=== PATIENT | female | born 1980 | race Caucasian/White ===

== ENCOUNTER 2017-11-29 16:02 | Emergency (ER) | payer BC ==
[~2017-11-29] VITALS: Ht 162.6 cm; Wt 68.4 kg
[2017-11-29 16:07] VITALS: TEMP 36.5; Ht 162.6 cm; Wt 68.4 kg
--- NOTE | 2017-11-29 17:24 | DIAGNOSTIC IMAGING REPORT ---
CHEST ONE VIEW PORTABLE CLINICAL HISTORY: Weakness COMPARISON STUDY: No previous studies for comparison. FINDINGS: The cardiac and mediastinal contours are normal. There is no evidence of focal pulmonary consolidation. There is no evidence of failure. No pleural effusions are visualized.[ IMPRESSION: No active disease in the chest. Electronically signed by: Maxim Alfaro M.D. 11/29/2017 5:23 PM Dictated Date/Time: 11/29/2017 5:22 PM
[2017-11-29] MEDS ORDERED: MULT-506 PO (17:26)
[2017-11-29] MEDS ORDERED: SPIR25TA PO (17:26)
[2017-11-29] MEDS ORDERED: LEVOTAB6 PO (17:26)
[2017-11-29] MEDS ORDERED: CETI10TA84 PO (17:26)
[2017-11-29] MEDS ORDERED: ASCO1CHW17 PO (17:26)
[2017-11-29] MEDS ORDERED: PROB1TAB16 PO (17:26)
[2017-11-29 17:39] VITALS: O2SAT 100
[2017-11-29 17:43] LABS: BASO % 0.3 %; BASO ABS # 0.02 K/uL (0-0.2); EOS % 1.6 %; EOS ABS # 0.12 K/uL (0-0.5); HEMATOCRIT 44.2 % (37-47); HEMOGLOBIN 15.6 g/dL (12.0-16.0); IG# 0.02 K/uL (0.00-0.02); LYMPH % 35.3 %; MEAN CELL VOLUME 89.1 fL (80-100); MEAN CORPUSCULAR HEMOGLOBIN 31.5 pg (25-34); MEAN CORPUSCULAR HGB CONC 35.3 g/dl (32-36); MEAN PLATELET VOLUME 10.2 fL (7.4-10.4); MONO % 5.6 %; MONO ABS # 0.41 K/uL (0.11-0.59); NEUT % 56.9 %; NEUT ABS # 4.19 K/uL (1.4-6.5); PLATELET COUNT 258 K/uL (130-400); RED CELL DISTRIBUTION WIDTH CV 12.2 % (11.5-14.5); RED CELL DISTRIBUTION WIDTH SD 39.3 fL (36.4-46.3); WHITE BLOOD COUNT 7.36 K/uL (4.8-10.8)
[2017-11-29] MEDS: SODIUM CHLORIDE 0.9% 1000ML 1,000 ML IV STA (17:44)
[2017-11-29 17:49] LABS: PTT PATIENT 26.7 SECONDS (21.0-31.0)
[2017-11-29 18:08] LABS: ALT/SGPT 39 U/L (12-78); BLOOD UREA NITROGEN 14 mg/dl (7-18); CALCIUM 9.1 mg/dl (8.5-10.1); CARBON DIOXIDE 26 mmol/L (21-32); GLUCOSE 89 mg/dl (70-99); POTASSIUM 3.5 mmol/L (3.5-5.1); SODIUM 137 mmol/L (136-145)
[2017-11-29 18:19] LABS: ALKALINE PHOSPHATASE 51 U/L (45-117); AST/SGOT 20 U/L (15-37); TOTAL PROTEIN 7.9 gm/dl (6.4-8.2)
--- NOTE | 2017-11-29 18:37 | DIAGNOSTIC IMAGING REPORT ---
CT HEAD WITHOUT CONTRAST (CT) CLINICAL HISTORY: Weakness COMPARISON STUDY: No previous studies for comparison. TECHNIQUE: Axial CT of the brain is performed from the vertex to the skull base. IV contrast was not administered for this examination. A dose lowering technique was utilized adhering to the principles of ALARA. CT DOSE: 537.48 mGy.cm FINDINGS: No intra or extra-axial mass lesions are visualized. There is no CT evidence of acute cortical infarction. There is no evidence of midline shift. There is no acute hemorrhage. No calvarial fractures are visualized. There is no evidence of pathologic ventricular dilatation. There is no evidence of acute sinusitis IMPRESSION: Normal noncontrast head CT. Electronically signed by: Maxim Alfaro M.D. 11/29/2017 6:36 PM Dictated Date/Time: 11/29/2017 6:35 PM
[2017-11-29 19:50] VITALS: BP 131/68; PULSE 73; O2SAT 98
--- NOTE | 2017-11-30 00:22 | EMERGENCY ROOM VISIT NOTE ---
History Report prepared by Fortino: Carolina Almonte Under the Supervision of: Dr. Giuliano Archuleta D.O. First contact with patient: 16:51 Chief Complaint: DIZZY Stated Complaint: DIZZY, SHAKEY, MUSCLES FEEL FUNNY, STOMACH CRAMPS Nursing Triage Summary: Patient states on Monday before lunch she felt dizzy and lightheaded. people at work opened a window and gave her some gatorade. Today again same thing. Recent new vitamin. Denies headache. History of Present Illness The patient is a 37 year old female who presents to the Emergency Room with complaints of intermittent dizziness starting 2 days ago. She was sent to the ED by her PCP. The patient suddenly felt lightheaded during lunch 2 days ago. She felt shaky and like she might pass out. She states that her arms and legs felt heavy. This dizziness worsens with movement of her head. She has had tingling in her right arm and right side at night. She denies any chest pain, SOB, ringing in the ears, or focal weakness. She has no history of hypertension. No vomiting or diarrhea. Source of History: patient Onset: 2 days ago Position: other (global) Quality: other (dizziness) Timing: intermittent Modifying Factors (Worsening): movement (of head) Associated Symptoms: No chest pain, No SOB, No weakness Review of Systems See HPI for pertinent positives & negatives. A total of 10 systems reviewed and were otherwise negative. Past Medical & Surgical Medical Problems: (1) Asthma Family History Cancer Heart disease Social History Smoking Status: Never Smoker Smokeless Tobacco Use: No Alcohol Use: other (rarely) Marital Status: Housing Status: lives with family Occupation Status: employed Current/Historical Medications Scheduled Ascorbic Acid (Vitamin C Adult Gummies 125 mg), 1 TAB PO DAILY Cetirizine (Zyrtec), 10 MG PO 1-2XDAILY Levonorgestrel-Ethinyl Estradi (Seasonique), 1 TAB PO DAILY Multivitamin (Multivitamin), 1 TAB PO DAILY Probiotic Product (Probiotic), 1 TAB PO DAILY Spironolactone (Aldactone), 1 TAB PO DAILY Allergies Coded Allergies: Sulfa Antibiotics (Unverified Allergy, Intermediate, HIVES, SOB, 11/29/17) Physical Exam Vital Signs Date Time Temp Pulse Resp B/P (MAP) Pulse Ox O2 Delivery O2 Flow Rate FiO2 11/29/17 19:50 73 18 131/68 98 11/29/17 17:45 75 18 122/86 100 Room Air 11/29/17 17:42 83 11/29/17 17:40 80 121/87 100 Room Air 81 117/87 83 122/86 11/29/17 17:39 100 Room Air 11/29/17 16:07 36.5 80 16 162/89 99 Room Air Physical Exam GENERAL: Sitting up in bed, alert, well appearing, well nourished, no distress, non-toxic EYE EXAM: normal conjunctiva. PERRL and EOM's intact. OROPHARYNX: no exudate, no erythema, lips, buccal mucosa, and tongue normal and mucous membranes are moist NECK: supple, no nuchal rigidity, no adenopathy, non-tender LUNGS: Clear to auscultation. Normal chest wall mechanics HEART: no murmurs, S1 normal and S2 normal ABDOMEN: abdomen soft, non-tender, normo-active bowel sounds, no masses, no rebound or guarding. BACK: Back is symmetrical on inspection and there is no deformity, no midline tenderness, no CVA tenderness. SKIN: no rashes and no bruising UPPER EXTREMITIES: upper extremities are grossly normal. LOWER EXTREMITIES: No pitting edema. NEURO EXAM: Normal sensorium, cranial nerves II-XII intact, normal speech, no weakness of arms, no weakness of legs. No drift. Finger to nose intact. Gross sensation intact. Medical Decision & Procedures ER Provider Diagnostic Interpretation: Xray results as stated below per my and the radiologist's interpretation. Radiology results as stated below per my review and the radiologist's interpretation: CHEST ONE VIEW PORTABLE CLINICAL HISTORY: Weakness COMPARISON STUDY: No previous studies for comparison. FINDINGS: The cardiac and mediastinal contours are normal. There is no evidence of focal pulmonary consolidation. There is no evidence of failure. No pleural effusions are visualized.[ IMPRESSION: No active disease in the chest. Electronically signed by: Maxim Alfaro M.D. 11/29/2017 5:23 PM Dictated Date/Time: 11/29/2017 5:[address] HEAD WITHOUT CONTRAST (CT) CLINICAL HISTORY: Weakness COMPARISON STUDY: No previous studies for comparison. TECHNIQUE: Axial CT of the brain is performed from the vertex to the skull base. IV contrast was not administered for this examination. A dose lowering technique was utilized adhering to the principles of ALARA. CT DOSE: 537.48 mGy.cm FINDINGS: No intra or extra-axial mass lesions are visualized. There is no CT evidence of acute cortical infarction. There is no evidence of midline shift. There is no acute hemorrhage. No calvarial fractures are visualized. There is no evidence of pathologic ventricular dilatation. There is no evidence of acute sinusitis IMPRESSION: Normal noncontrast head CT. Electronically signed by: Maxim Alfaro M.D. 11/29/2017 6:36 PM Dictated Date/Time: 11/29/2017 6:35 PM Laboratory Results 11/29/17 17:24 Red Blood Count 4.96, Mean Corpuscular Volume 89.1, Mean Corpuscular Hemoglobin 31.5, Mean Corpuscular Hemoglobin Concent 35.3, Mean Platelet Volume 10.2, Neutrophils (%) (Auto) 56.9, Lymphocytes (%) (Auto) 35.3, Monocytes (%) (Auto) 5.6, Eosinophils (%) (Auto) 1.6, Basophils (%) (Auto) 0.3, Neutrophils # (Auto) 4.19, Lymphocytes # (Auto) 2.60, Monocytes # (Auto) 0.41, Eosinophils # (Auto) 0.12, Basophils # (Auto) 0.02 11/29/17 17:24 Test 11/29/17 17:24 11/29/17 17:26 White Blood Count 7.36 K/uL (4.8-10.8) Red Blood Count 4.96 M/uL (4.2-5.4) Hemoglobin 15.6 g/dL (12.0-16.0) Hematocrit 44.2 % (37-47) Mean Corpuscular Volume 89.1 fL (80-100) Mean Corpuscular Hemoglobin 31.5 pg (25-34) Mean Corpuscular Hemoglobin Concent 35.3 g/dl (32-36) Platelet Count 258 K/uL (130-400) Mean Platelet Volume 10.2 fL (7.4-10.4) Neutrophils (%) (Auto) 56.9 % Lymphocytes (%) (Auto) 35.3 % Monocytes (%) (Auto) 5.6 % Eosinophils (%) (Auto) 1.6 % Basophils (%) (Auto) 0.3 % Neutrophils # (Auto) 4.19 K/uL (1.4-6.5) Lymphocytes # (Auto) 2.60 K/uL (1.2-3.4) Monocytes # (Auto) 0.41 K/uL (0.11-0.59) Eosinophils # (Auto) 0.12 K/uL (0-0.5) Basophils # (Auto) 0.02 K/uL (0-0.2) RDW Standard Deviation 39.3 fL (36.4-46.3) RDW Coefficient of Variation 12.2 % (11.5-14.5) Immature Granulocyte % (Auto) 0.3 % Immature Granulocyte # (Auto) 0.02 K/uL (0.00-0.02) Prothrombin Time 10.0 SECONDS (9.0-12.0) Prothromb Time International Ratio 1.0 (0.9-1.1) Activated Partial Thromboplast Time 26.7 SECONDS (21.0-31.0) Partial Thromboplastin Ratio 1.0 Urine Color YELLOW Urine Appearance CLEAR (CLEAR) Urine pH 8.0 (4.5-7.5) Urine Specific [place] 1.005 (1.000-1.030) Urine Protein NEG (NEG) Urine Glucose (UA) NEG (NEG) Urine Ketones NEG (NEG) Urine Occult Blood NEG (NEG) Urine Nitrite NEG (NEG) Urine Bilirubin NEG (NEG) Urine Urobilinogen NEG (NEG) Urine Leukocyte Esterase TRACE (NEG) Urine WBC (Auto) 1-5 /hpf (0-5) Urine RBC (Auto) 0-4 /hpf (0-4) Urine Hyaline Casts (Auto) 0 /lpf (0-5) Urine Epithelial Cells (Auto) 10-20 /lpf (0-5) Urine Bacteria (Auto) NEG (NEG) Anion Gap 8.0 mmol/L (3-11) Est Creatinine Clear Calc Drug Dose 80.5 ml/min Estimated GFR () 94.0 Estimated GFR (Non- 81.1 BUN/Creatinine Ratio 15.3 (10-20) Calcium Level 9.1 mg/dl (8.5-10.1) Total Bilirubin 0.4 mg/dl (0.2-1) Direct Bilirubin 0.1 mg/dl (0-0.2) Aspartate Amino Transf (AST/SGOT) 20 U/L (15-37) Alanine Aminotransferase (ALT/SGPT) 39 U/L (12-78) Alkaline Phosphatase 51 U/L (45-117) Troponin I < 0.015 ng/ml (0-0.045) Total Protein 7.9 gm/dl (6.4-8.2) Albumin 4.0 gm/dl (3.4-5.0) Thyroid Stimulating Hormone (TSH) 2.070 uIu/ml (0.300-4.500) Bedside Glucose 113 mg/dl (70-90) Laboratory results per my review. Medications Administered Medications (Trade) Dose Ordered Sig/Óscar Route Start Time Stop Time Status Last Admin Dose Admin Sodium Chloride 1,000 ml @ 999 mls/hr Q1H1M STAT IV 11/29/17 17:08 11/29/17 18:08 DC 11/29/17 17:44 999 MLS/HR ECG Per My Interpretation Indication: other (dizziness) Rate (beats per minute): 76 Rhythm: sinus rhythm Findings: other (normal axis, no PVC) ED Course ED COURSE: Vital signs were reviewed and showed hypertension. The patients medical record was reviewed The above diagnostic studies were performed and reviewed. ED treatments and interventions as stated above. 1702: The patient was evaluated in room C8. A complete history and physical examination was performed. 1708: NSS 1000 ml @ 999 mls/hr IV. 1919: Upon reevaluation, the patient is resting comfortably. I discussed my findings with the patient and she understands and agrees with the treatment plan. Based on the patients age, coexisting illnesses, exam and lab findings the decision to treat as an outpatient was made. The patient remained stable while under my care. The patient appeared well at the time of discharge. Medical Decision Differential diagnosis includes etiologies such as benign positional vertigo, dehydration, hypovolemia, anemia, tumor, infection, hypoglycemia, electrolyte abnormalities, cardiac sources, intracerebral event, toxicologic, neurologic, as well as others were entertained. Patient is a 29-year-old female who presents to ER for intermittent lightheadedness which started today with lunch. She had the same symptoms on Monday. She is completely neurologically intact. CBC all BMP, LFTs, bilirubin and troponin were negative. TSH was normal. UA was negative. No chest pain or shortness of breath to suggest PE. Chest x-ray was unremarkable. CT head was negative. EKG was nondiagnostic. Patient was given fluids. She did feel completely back to baseline. Her abdominal exam was completely benign. Uncertain of the true etiology of her symptoms. On Monday she did have some ringing in her ear associated with this. Today she did not. It is worsened with twisting turning of her head. I do favor the this is likely benign positional vertigo although I was not able to produce on exam as her symptoms have completely abated. Discussed with Pt concerning signs and symptoms to watch out for. Pt was instructed to follow up with their PCP and discussed with the patient their option to return to the ED at anytime for persistent or worsening symptoms. The appropriate anticipatory guidance and out-patient management, including indications for return to the emergency department, were explained at length to the patient and understood. Medication Reconcilliation Current Medication List: was personally reviewed by me Blood Pressure Screening Patient's blood pressure: Elevated blood pressure Blood pressure disposition: Elevated BP felt to be situational Impression Primary Impression: Dizziness Scribe Attestation The scribe's documentation has been prepared under my direction and personally reviewed by me in its entirety. I confirm that the note above accurately reflects all work, treatment, procedures, and medical decision making performed by me. Departure Information Dispostion Home / Self-Care Referrals Ronni Rivera M.D. (PCP) Forms HOME CARE DOCUMENTATION FORM, IMPORTANT VISIT INFORMATION Patient Instructions ED Dizziness O, My [facility] Additional Instructions Please follow up with your primary care doctor with in the next 24 hours. Any worsening of your symptoms, please return to the ED immediately. This includes any fevers greater than 100.4, worsening pain, chest pain, shortness breath, persistent nausea, vomiting, unable to eat or drink, or any other concerning signs or symptoms from your standpoint.
== END 2017-11-29 19:50 | disposition home or self-care (01) ==
LOC: C.EDB 16:04 → C.EDC 19:50
DX: R42 Dizziness and giddiness (principal); J45.909 Unspecified asthma, uncomplicated; Z82.49 Family history of ischemic heart disease and other diseases of the circulatory system

== ENCOUNTER 2020-04-17 06:02 | Observation (INO) ==
--- NOTE | 2020-03-31 11:00 | PAT Medication Instructions ---
Medication Instructions Date of Service March 31, 2020 Home Medications Medication Instructions Recorded ondansetron HCl 4 mg tablet 4 mg PO TID PRN 5 Days #20 tab 01/17/20 ascorbic acid (vitamin C) 125 mg PO DAILY spironolactone 50 mg PO QAM cholecalciferol (vitamin D3) 10 mcg (400 unit) capsule 10 mcg PO DAILY multivitamin 1 tab PO DAILY vitamin B complex 1 tab PO DAILY ondansetron HCl 4 mg tablet 4 mg PO TID PRN albuterol sulfate 90 mcg/actuation breath activated powder inhaler 1 puffs INH QID PRN azelastine 137 mcg (0.1 %) nasal spray aerosol 1 sprays INTNAS BID cetirizine 10 mg capsule 10 mg PO BID fluticasone propionate 50 mcg/actuation nasal spray,suspension 1 sprays INTNAS DAILY lactobacillus combination no.9 4 billion cell capsule 4,000 mmu cells PO DAILY omega-3 fatty acids 1,000 mg capsule 1,000 mg PO DAILY guaifenesin [Mucinex] 600 mg PO QAM STOP taking 2 weeks before surgery (or as soon as possible if surgery is within 2 weeks) omega-3 fatty acids 1,000 mg capsule 1,000 mg PO DAILY DO NOT take the morning of surgery ascorbic acid (vitamin C) 125 mg PO DAILY cholecalciferol (vitamin D3) 10 mcg (400 unit) capsule 10 mcg PO DAILY multivitamin 1 tab PO DAILY vitamin B complex 1 tab PO DAILY cetirizine 10 mg capsule 10 mg PO BID lactobacillus combination no.9 4 billion cell capsule 4,000 mmu cells PO DAILY guaifenesin [Mucinex] 600 mg PO QAM Take morning of surgery With a small sip of water, OTHERWISE NOTHING TO EAT OR DRINK AFTER MIDNIGHT: ondansetron HCl 4 mg tablet 4 mg PO TID PRN (if needed) albuterol sulfate 90 mcg/actuation breath activated powder inhaler 1 puffs INH QID PRN (use if needed; please bring with you to hospital day of surgery if possible) azelastine 137 mcg (0.1 %) nasal spray aerosol 1 sprays INTNAS BID fluticasone propionate 50 mcg/actuation nasal spray,suspension 1 sprays INTNAS DAILY Take evening before surgery ondansetron HCl 4 mg tablet 4 mg PO TID PRN (if needed) albuterol sulfate 90 mcg/actuation breath activated powder inhaler 1 puffs INH QID PRN (if needed) azelastine 137 mcg (0.1 %) nasal spray aerosol 1 sprays INTNAS BID cetirizine 10 mg capsule 10 mg PO BID Other Notes If you have any questions please call us at [phone] or [phone] or [phone] or [phone]
--- NOTE | 2020-03-31 11:28 | Anesthesiology Consultation ---
Date of Service March 31, 2020 Assessment & Plan (1) Encounter for pre-operative examination: Per PAT assessment on 03/31: Travel screen- + [facility]- visited family outside (+social distance, wore mask, hand washing). No known COVID-19 positive contacts. No current COVID-19 related symptoms. No hx of COVID-19 testing in past 30 days. Surgeon arranging preop COVID testing. Awaiting results. - Check test AM DOS - No chlorhexidine wipes: Patient advised not to use chlorhexidine wipes preoperatively d/t hx of reaction of itchy/rash with use. Patient voiced understanding. Chart Review Chart Review: Acceptable Risk for Surgery (pending COVID test) and Patient seen in Pre Admission Testing Teaching & Discussion Pre-Anesthesia Teaching/Discussion Notes: Instructed NPO after midnight before surgery,except medications with 15 cc of water. Medication instructions provided according to the PAT guidelines. History Surgery Operation Date: 04/17/20 07:30 Proposed Procedures p Robotic Laproscopic Removal of Both Fallopian Tubes and Ovaries, Robotic Laparoscopic Removal of Uterus - Jo Perez DO Height/Weight Height: 5 ft 4 in Weight: 65.9 kg Allergies Allergy/AdvReac Type Severity Reaction Status Date / Time amoxicillin [From Augmentin] Allergy Intermediate Hives and Verified 03/31/20 09:21 vomiting chlorhexidine Allergy Intermediate Itching, Verified 03/31/20 12:58 rash chromium Allergy Intermediate Hives Verified 03/31/20 09:21 clavulanic acid Allergy Intermediate Hives and Verified 03/31/20 09:21 [From Augmentin] vomiting nickel Allergy Intermediate Hives Verified 03/31/20 09:21 Sulfa (Sulfonamide Allergy Intermediate hives, Verified 03/31/20 12:58 Antibiotics) dyspnea adhesive tape Allergy Mild Rash Verified 03/31/20 09:21 house dust Allergy Mild Rhinitis Verified 03/31/20 09:21 Medications Home Medications Medication Instructions Recorded Confirmed Last Taken ascorbic acid (vitamin C) 125 mg PO DAILY 08/25/18 03/31/20 08/25/18 spironolactone 50 mg PO QAM 08/25/18 03/31/20 08/25/18 cholecalciferol (vitamin D3) 10 10 mcg PO DAILY 11/22/19 03/31/20 Unknown mcg (400 unit) capsule multivitamin 1 tab PO DAILY 11/22/19 03/31/20 Unknown vitamin B complex 1 tab PO DAILY 11/22/19 03/31/20 Unknown ondansetron HCl 4 mg tablet 4 mg PO TID PRN 5 Days #20 tab 01/17/20 03/31/20 Unknown albuterol sulfate 90 mcg/actuation 1 puffs INH QID PRN 03/04/20 03/31/20 Unknown breath activated powder inhaler azelastine 137 mcg (0.1 %) nasal 1 sprays INTNAS BID 03/04/20 03/31/20 Unknown spray aerosol cetirizine 10 mg capsule 10 mg PO BID cap 03/04/20 03/31/20 Unknown fluticasone propionate 50 1 sprays INTNAS DAILY 03/04/20 03/31/20 Unknown mcg/actuation nasal spray,suspension lactobacillus combination no.9 4 4,000 mmu cells PO DAILY cap 03/04/20 03/31/20 Unknown billion cell capsule omega-3 fatty acids 1,000 mg 1,000 mg PO DAILY 03/04/20 03/31/20 Unknown capsule guaifenesin [Mucinex] 600 mg PO QAM 03/26/20 03/31/20 Unknown Past Medical History Medical History Asthma stable, seasonal Borderline high cholesterol Breast cancer + current radiation tx (to be completed 04/09), no chemo Chronic sinusitis Dermatitis Eczema History of mononucleosis (Inactive) Migraine Seasonal allergies Situational anxiety Temporomandibular joint disorder no locking Past Family History Family History Grandmother (Maternal) Breast cancer Mother Hypertension Father Heart disease Mental health disorder Sister Thyroid nodule Son No problems noted. Daughter No problems noted. Grandfather (Paternal) Diabetes Past Surgical History Surgical History History of breast biopsy X 2 Hx of lumpectomy RT [place] teeth removed Past Anesthesia History No Family Hx of Anesthesia Complications and Other - Patient states that she was "slow to wake up" after hysterectomy (01/2020 at [facility] [place]). She states that she did not have issues with surgery but she was told in the future "to be an early case" d/t this. No hx reintubation. Patient was able to discharged same day after surgery without issue. OR made aware to make earlier case if possible. - Mother: "slow to wake" History of PONV No Hx of PONV and No Hx of Motion Sickness Social History Smoking Status: Never smoker Do You Dip or Chew Tobacco: No Hx Alcohol Use: Yes alcohol intake frequency: holidays/special occasions only Hx Substance Use: No substance use type: does not use Review of Systems Patient denies chest pain, shortness of breath, fever, chills, cough, wheezing, palpitations. Physical Exam Vital Signs VITALS BP 108/78 P 81 TEMP 97.8 SP02 96%RA RESP 16 PHYSICAL Full neck and c-spine range of motion. Full TMJ range of motion. TMD 3 finger breaths Mallampati Score 2 Dentition: upper front implant Lungs: clear throughout to auscultation Cardiac: regular rate and rhythm, no murmurs noted Spine: normal Carotid arteries: negative bruit Extremities: no edema Testing Laboratory Results 03/31/20 12:17 03/31/20 12:17 Urine Color Yellow 03/31/20 12:17 Urine Appearance Clear (Clear) 03/31/20 12:17 Urine pH 7.0 (4.5-7.5) 03/31/20 12:17 Ur Specific [place] 1.011 (1.000-1.030) 03/31/20 12:17 Urine Protein Negative (Negative) 03/31/20 12:17 Urine Glucose (UA) Negative (Negative) 03/31/20 12:17 Urine Ketones Negative (Negative) 03/31/20 12:17 Urine Nitrite Negative (Negative) 03/31/20 12:17 Ur Leukocyte Esterase Negative (Negative) 03/31/20 12:17 Blood Type O Positive 03/31/20 12:17 Antibody Screen NEGATIVE 03/31/20 12:17
[2020-03-31 13:03] LABS: Basophils # (auto) 0.01 K/uL (0-0.2); Basophils % (auto) 0.1 %; Eosinophils # (auto) 0.19 K/uL (0-0.5); Eosinophils % (auto) 2.6 %; Hematocrit (blood only) 44.8 % (37-47); Immature Granulocytes # (auto) 0.02 K/uL (0.00-0.02); Immature Granulocytes % (auto) 0.3 %; Lymphocytes # (auto) 1.83 K/uL (1.2-3.4); Lymphocytes % (auto) 25.1 %; Mean Corpuscular Hgb Conc 33.5 g/dL (32-36); Mean Corpuscular Volume 89.6 fL (80-100); Mean Platelet Volume 10.7 fL (7.4-10.4); Monocytes # (auto) 0.58 K/uL (0.11-0.59); Monocytes % (auto) 7.9 %; Neutrophils # (auto) 4.67 K/uL (1.4-6.5); Platelet Count 227 K/uL (130-400); RDW Coefficient of Variation 12.2 % (11.5-14.5); RDW Standard Deviation 39.4 fL (36.4-46.3)
[2020-03-31 13:15] LABS: Appearance Urine Clear (Clear); Bilirubin Urine Negative (Negative); Blood Urine Negative (Negative); Color Urine Yellow; Glucose Urine UA Negative (Negative); Ketones Urine Negative (Negative); Leukocyte Esterase Urine Negative (Negative); Nitrite Urine Negative (Negative); Protein Urine Negative (Negative); Specific Gravity Urine 1.011 (1.000-1.030); Urobilinogen Urine Negative (Negative)
[2020-03-31 15:57] LABS: Est GFR (African American) 110.2
[2020-03-31 15:58] LABS: Calcium 9.5 mg/dl (8.5-10.1); Creatinine Clr Calc Pharmacy 89.6 ml/min; Est GFR (Non-African American) 95.1
[~2020-04-17 06:02] MED LIST: CEFAZOLIN 2000MG 2,000 MG/15 ML SYR IV SCH; LR 15ML/HR IV SCH
[2020-04-17] MEDS ORDERED: PROPOFOL IV EMULSION 10 MG/ML 20 ML VIAL IV ONE (06:54)
[2020-04-17] MEDS ORDERED: MIDAZOLAM HCL 1 MG/ML 2ML VIAL ONE ×2 (06:54→07:37)
[2020-04-17] MEDS ORDERED: NEOSTIGMINE METHYLSULFATE 5 MG/5 ML SYR ONE (06:54)
[2020-04-17] MEDS ORDERED: LIDOCAINE HCL 2% 2 ML VIAL/AMP(20MG/ML) INFIL ONE (06:54)
[2020-04-17] MEDS ORDERED: DEXAMETHASONE SOD INJ 4 MG/ML VIAL ONE (06:54)
[2020-04-17] MEDS ORDERED: ONDANSETRON INJ 2 MG/ML 2 ML VIAL ONE (06:54)
[2020-04-17] MEDS ORDERED: GLYCOPYRROLATE 0.2 MG/ML VIAL ONE (06:54)
[2020-04-17] MEDS ORDERED: fentaNYL citrate 100 MCG/2 ML VIAL ONE (06:55)
[2020-04-17] MEDS ORDERED: BUPIVACAINE 0.5 % 5 MG/1 ML MPF 30ML VIAL ONE (06:58)
[2020-04-17] MEDS ORDERED: ATROPINE SULFATE 0.1 MG/ML 10ML SYR IV PRN (07:10)
[2020-04-17] MEDS ORDERED: fentaNYL citrate 100 MCG/2 ML VIAL IV PRN (07:10)
[2020-04-17] MEDS ORDERED: HYDROmorphone INJ 1 MG/ML SYRINGE IV PRN (07:10)
[2020-04-17] MEDS ORDERED: ONDANSETRON INJ 2 MG/ML 2 ML VIAL IV PRN ×2 (07:10→09:54)
[2020-04-17] MEDS ORDERED: ePHEDrine sulfate 50 MG/ML AMP IV PRN (07:10)
[2020-04-17] MEDS ORDERED: SCOPOLAMINE 1.5 MG TDSY TD ONE ×2 (07:24→07:26)
[2020-04-17] MEDS ORDERED: HEPARIN SOD 5,000 UNIT/0.5 ML VIAL SQ STA (07:25)
[2020-04-17] MEDS ORDERED: HEPARIN SOD 5,000 UNIT/0.5 ML VIAL ONE (07:26)
--- NOTE | 2020-04-17 07:26 | History & Physical Bridge Note ---
Date of Service April 17, 2020 History & Physical Bridge Note I have examined the patient, reviewed the History & Physical and in the interval since the performance of the History & Physical I have noted the following changes of clinical significance: no changes noted
[2020-04-17] MEDS ORDERED: PROMETHAZINE HCL 12.5 MG in SODIUM CHLORIDE 0.9% 50 ML IV PRN ×2 (07:36→09:54)
[2020-04-17] MEDS ORDERED: LARYING-O-JET KIT (LTA) ONE (08:35)
[2020-04-17] MEDS ORDERED: KETOROLAC 30 MG/ML VIAL ONE (08:35)
[2020-04-17] MEDS ORDERED: ROCURONIUM BROMIDE 10 MG/ML 5 ML VIAL IV ONE (08:35)
[2020-04-17] MEDS ORDERED: TISSEEL FIBRIN SEALANT 10ML TOP ONE (08:42)
[2020-04-17] MEDS ORDERED: KETOROLAC 30 MG/ML VIAL IV PRN (09:54)
[2020-04-17] MEDS ORDERED: OXYCODONE/ACETAMINOPHEN 5mg/325mg TAB PO PRN ×2 (09:54)
[2020-04-17] MEDS ORDERED: SIMETHICONE 80 MG CHEW PO PRN (09:54)
[2020-04-17] MEDS ORDERED: IBUPROFEN 600 MG TAB PO PRN (09:54)
--- NOTE | 2020-04-17 09:57 | Post Operative Brief Note ---
PG Immediate Post Op with CF Date of Surgery April 17, 2020 Pre & Post Diagnosis Operation Date: 04/17/20 07:30 Pre-Op Diagnosis: Breast Cancer Post-Op Diagnosis: Breast Cancer I identified the patient and participated in the time-out.: Yes Procedure Operation Date: 04/17/20 07:30 Actual Procedures p Robotic Laproscopic Bilateral Removal of Fallopian Tubes, Ovaries and Uterus, Cystoscopy(Not Applicable) - Jo Perez DO Surgeon Jo Perez, DO Polygraph Technician none Estimated Blood Loss 50 Findings Consistent with Post-Op Diagnosis Specimens Specimen Description: Permanent specimen: A. uterus, cervix, bilateral fallopian tubes and ovaries Drains Dobson Catheter (18 fr dobson inserted by Sid Perez, clear yellow urine for return) Anesthesia Type General Complications none Disposition Accompanied Patient To Recovery: No Disposition: Recovery Room
--- NOTE | 2020-04-17 13:11 | Operative Report ---
PG Post Operative Report Pre & Post Diagnosis Operation Date: 04/17/20 07:30 Pre-Op Diagnosis: Breast Cancer Post-Op Diagnosis: Breast Cancer I identified the patient and participated in the time-out.: Yes Procedure Operation Date: 04/17/20 07:30 Actual Procedures p Robotic Laproscopic Bilateral Removal of Fallopian Tubes, Ovaries and Uterus, Cystoscopy(Not Applicable) - Jo Perez DO Surgeon Jo Perez DO Seamer Panty Hose none Estimated Blood Loss 50 Findings Consistent with Post-Op Diagnosis Normal appearing uterus, tubes, ovaries. Specimens fallopian tubes, uterus, bilateral ovaries Drains dobson, clear yellow Anesthesia Type General Complications none Disposition Accompanied Patient To Recovery: No Disposition: Recovery Room Indications 39yo with diagnosis of breast cancer, had been counseled by oncology that if she had removal of ovaries, she would be able to avoid additional treatments that would suppress ovarian function. She desires removal of fallopian tubes/ovaries, uterus, for both this breast cancer, future treatment, and risk of uterine cancer. Description of Procedure The patient was seen in the preoperative holding area, risks benefits and alternatives to surgery reviewed. She had previously signed informed consent under no duress in the office. All questions were answered. She was taken to the operating room, she was given 2 g of Ancef preoperatively. She was also given 5000 units of heparin preoperatively due to increased blood clot risk because of her concurrent cancer diagnosis. She underwent general anesthesia, and was prepared and draped in the usual sterile fashion in the dorsolithotomy position with feet in yellowfin stirrups. Timeout was confirmed. A Dobson catheter was placed in the bladder. A weighted speculum was placed in the vagina, the cervix visualized. Stay sutures were placed at 3 and 9:00. The uterine manipulator was placed. At some point during placement, this perforated the uterus. Gloves were changed and attention was then turned to the abdomen. Using the optical scope, the supraumbilical trocar was placed under direct visualization. The intra-abdominal placement was confirmed with the camera. CO2 gas was connected and the abdomen was insufflated to 50 mmHg. The patient was placed in steep Trendelenburg position, the pelvis was visualized. There was no obvious trauma to any other aspect of the pelvis from the uterine perforation with the manipulator, other than the uterus itself. The robot was docked, instruments were inserted under direct visualization. Bilateral ureters were visualized peristalsing in the pelvic wall, far from the operative field. The left infundibulopelvic ligament was coagulated and transected. The mesosalpinx of the ovary was transected, and the utero-ovarian ligament was coagulated and transected. In a similar fashion, the ligaments of the right ovary were coagulated and transected. Both ovaries were placed in the cul-de-sac for removal. The left round ligament was then coagulated and transected, and the broad ligament was dissected. The anterior aspect of the broad ligament was dissected off the anterior aspect of the uterus to push the bladder away. In similar fashion the right round ligament was taken down. The bilateral uterine vessels were coagulated and transected at the level of the uterine manipulator. The uterus was amputated from the vaginal cuff and a circumferential incision. The uterus and bilateral fallopian tubes and ovaries were all delivered through the vagina and sent to pathology. The vaginal cuff was hemostatic, it was reapproximated using V lock suture in a running stitch. Cystoscopy was performed, and the bladder was visualized. Bilateral ureters were visualized with good urine jets flow. The bladder was atraumatic. A Dobson catheter was replaced into the bladder for the immediate postoperative recovery. To be removed on the floor. Attention was then turned to the abdomen again, and Tisseel coagulant was used across the vaginal cuff and all raw edges. The robot was docked disconnected and undocked, and trochars were removed from the abdomen. A stitch of 0 Vicryl was used to reapproximate the subcutaneous tissue at the umbilical incision and the assistant project engineer port. All incisions were reapproximated at the subcuticular level with 4-0 Vicryl in a running subcuticular stitch. 0.5% Marcaine was injected at each incision for local anesthetic. All incisions were hemostatic. Dermabond glue was used to reapproximate each incision. The patient was awoken from anesthesia, taken to recovery area in stable and good condition. At the conclusion of the case, all instruments, needles, sponge s correct counts x2. I attest to the content of the Intraoperative Record and any orders documented therein. Any exceptions are noted below.
--- NOTE | 2020-04-17 15:37 | Anesthesiology Progress Note ---
Date of Service April 17, 2020 Anesthesia Post Procedure Vital Signs Vital Signs: Temp Pulse Pulse Resp BP Pulse Ox 04/17/20 15:10 78 16 109/68 100 04/17/20 14:35 79 18 110/77 94 04/17/20 13:38 77 18 115/79 04/17/20 13:14 36.7 C 77 18 112/74 04/17/20 11:50 36.7 C 62 18 110/73 04/17/20 11:20 36.5 C 56 L 18 118/74 04/17/20 11:00 64 16 121/81 04/17/20 10:45 58 L 14 128/82 04/17/20 10:35 36.6 C 62 15 131/76 04/17/20 10:25 68 12 120/77 04/17/20 10:15 62 17 119/76 04/17/20 10:05 36.2 C L 69 12 123/80 04/17/20 06:23 36.6 C 66 16 120/80 100 Pain Intensity Abdomen: Pain Intensity: 3 Transfer of Care Handoff Completed per policy Notes Mental Status: alert / awake / arousable and participated in evaluation Patient Amnestic to Procedure: Yes Nausea / Vomiting: adequately controlled Pain: adequately controlled Airway Patency, RR, SpO2: stable & adequate BP & HR: stable & adequate Hydration State: stable & adequate Anesthetic Complications: no major complications apparent and Pt Satisfied with anesthetic care
[2020-04-17] MEDS ORDERED: CHECK SCOPOLAMINE PATCH PLACEMENT SCH (16:00)
[2020-04-17] MEDS ORDERED: PERCOCET 5/325MG HOMEPACK PO ONE (19:08)
--- NOTE | 2020-04-17 20:34 | Gynecologic Progress Note ---
Date of Service April 17, 2020 Assessment & Plan Admission and Anticipated Discharge Date Admission Date: April 17, 2020 Subjective POD#0 doing well. Ambulating, urinating after dobson removed. Eating/drinking. Pain controlled. Feels very tired - states she is often "hit very hard" by anesthesia, medications, etc. Would like to go home. Incisions CDI, abdomen soft. EPCs have been on. Reviewed postop instructions. Rx percocet, home pack for tonight as pharmacy will be closed. Discussed motrin, stool softener. Doing well. Followup in office in 2w. Results & Data ([facility]) Vital Signs (Past 12 Hours) Vital Signs Temp Pulse Pulse Resp BP Pulse Ox 04/17/20 19:14 36.8 C 86 18 105/69 100 04/17/20 19:05 36.7 C 78 16 109/68 04/17/20 15:10 78 16 109/68 100 04/17/20 14:35 79 18 110/77 94 04/17/20 13:38 77 18 115/79 04/17/20 13:14 36.7 C 77 18 112/74 100 04/17/20 11:50 36.7 C 62 18 110/73 04/17/20 11:20 36.5 C 56 L 18 118/74 04/17/20 11:00 64 16 121/81 04/17/20 10:45 58 L 14 128/82 04/17/20 10:35 36.6 C 62 15 131/76 100 04/17/20 10:25 68 12 120/77 100 04/17/20 10:15 62 17 119/76 04/17/20 10:05 36.2 C L 69 12 123/80 100
--- NOTE | 2020-04-17 20:35 | Discharge Summary ---
Date of Service April 17, 2020 Discharge Data Procedures Performed Operation Date: 04/17/20 07:30 Actual Procedures p Robotic Laproscopic Bilateral Removal of Fallopian Tubes, Ovaries and Uterus, (Not Applicable) - Jo Perez DO s Cystoscopy(Not Applicable) - Jo Perez DO Hospital Course (1) Malignant neoplasm of central portion of right breast in female, estrogen receptor positive: Observed after above procedures, discharged home same day. Followup office 2, 6 weeks. Rx percocet. Coding Level of Care Code None Diagnoses Malignant neoplasm of central portion of right breast in female, estrogen receptor positive C50.111; Z17.0
[2020-04-17] MEDS ORDERED: DOCUSATE SODIUM 100 MG CAP PO SCH (21:00)
== END 2020-04-17 20:39 | disposition home or self-care (01) ==
LOC: 3W 06:02 → ASU 06:02